=== PATIENT | female | born 1960 | race Caucasian/White ===

== ENCOUNTER → 2018-06-07 11:37 | Outpatient (CLI) | payer OTHER, SELFPAY ==
[2018-06-07 14:34] LABS: Anion Gap 8 (5-15); BUN 17 mg/dL (7-18); BUN/Creat Ratio 18.5 RATIO (10-20); Calcium,Total 9.2 mg/dL (8.5-10.1); Chloride 103 mmol/L (98-107); Creatinine, Serum 0.92 mg/dL (0.55-1.02); EST Glomerular Filtration Rate 67 mL/min (>60); Est Glom Filt Rate - Afr Amer 81 mL/min (>60); Glucose 90 mg/dL (74-106); Potassium 3.6 mmol/L (3.5-5.1); Sodium Level 142 mmol/L (136-145); Thyroid Stim Hormone (TSH) 1.05 uIU/mL (0.358-3.74)
== END ==
PROVIDERS: Family Provider Family Medicine; PCP Family Medicine; Visit Provider Family Medicine
DX: Z00.00 Encounter for general adult medical examination without abnormal findings (principal)
CPT/HCPCS: 36415; 80048; 84443

== ENCOUNTER → 2019-05-14 | Outpatient (CLI) | payer OTHER, SELFPAY ==
[2019-05-14 17:47] LABS: Anion Gap 8 (5-15); BUN 17 mg/dL (7-18); BUN/Creat Ratio 19.6 RATIO (10-20); Calcium,Total 9.3 mg/dL (8.5-10.1); Chloride 103 mmol/L (98-107); Creatinine, Serum 0.87 mg/dL (0.55-1.02); EST Glomerular Filtration Rate 71 mL/min (>60); Est Glom Filt Rate - Afr Amer 86 mL/min (>60); Glucose 99 mg/dL (74-106); Potassium 3.6 mmol/L (3.5-5.1); Sodium Level 142 mmol/L (136-145)
== END | disposition home or self-care (01) ==
LOC: MFPLAB 15:50
PROVIDERS: Family Provider Family Medicine; PCP Family Medicine; Referring Provider Family Medicine; Visit Provider Family Medicine
DX: I10 Essential (primary) hypertension (principal)
CPT/HCPCS: 36415; 80048

== ENCOUNTER → 2020-04-23 | Outpatient (CLI) | payer OTHER, SELFPAY ==
[2020-04-23 12:54] LABS: Anion Gap 4 (5-15); BUN 14 mg/dL (7-18); BUN/Creat Ratio 15.4 RATIO (10-20); Calcium,Total 9.8 mg/dL (8.5-10.1); Chloride 104 mmol/L (98-107); Creatinine, Serum 0.91 mg/dL (0.55-1.02); EST Glomerular Filtration Rate 67 mL/min (>60); Est Glom Filt Rate - Afr Amer 81 mL/min (>60); Glucose 78 mg/dL (74-106); Potassium 3.3 mmol/L (3.5-5.1); Sodium Level 138 mmol/L (136-145)
== END | disposition home or self-care (01) ==
LOC: MFPLAB 09:52
PROVIDERS: PCP Family Medicine; Referring Provider Family Medicine; Visit Provider Family Medicine
DX: I10 Essential (primary) hypertension (principal)
CPT/HCPCS: 36415; 80048

== ENCOUNTER → 2020-07-16 | Outpatient (CLI) | payer OTHER, SELFPAY | END | disposition home or self-care (01) | LOC: LABSPEC 13:54 | PROVIDERS: PCP Family Medicine; Visit Provider Family Medicine | DX: Z20.828 Contact with and (suspected) exposure to other viral communicable diseases (principal) | CPT/HCPCS: 87635; U0003 ==

== ENCOUNTER → 2020-07-21 14:17 | Outpatient (CLI) | payer OTHER, SELFPAY | PROVIDERS: PCP Family Medicine; Visit Provider Family Medicine | DX: R09.89 Other specified symptoms and signs involving the circulatory and respiratory systems (principal) | CPT/HCPCS: 87635; U0003 ==

== ENCOUNTER → 2021-06-08 07:40 | Outpatient (CLI) | payer OTHER, SELFPAY ==
--- NOTE | 2021-06-08 07:44 | BI_ITS ---
MAMMOGRAPHY - BILATERAL SCREENING REASON FOR EXAM: Female, 61 years old. Routine annual screening examination. PERTINENT HISTORY: Sister with breast cancer. Aunts with breast cancer. TECHNIQUE: Digital bilateral breast gene (3D mammographic acquisition) in the CC and MLO projections. 2-D mediolateral oblique (MLO) and craniocaudad (CC) views of both breasts were obtained. CAD: Full Field Digital Mammography with Computer Added Detection was performed. COMPARISON: None. Baseline examination. FINDINGS: Breast Composition: The breasts are heterogeneously dense, which may obscure small masses. There is a 0.4 cm x 0.5 cm well-defined nodule in the mid depth retroareolar region of the right breast. Correlation with ultrasound recommended. No other significant abnormalities are identified. BI/SCREENING MAMM (CAD), BILAT IMPRESSION: 4 mm x 5 mm well-defined nodule in the mid depth retroareolar region of the right breast. Correlation with ultrasound is recommended. ASSESSMENT CATEGORY: BIRADS Category 0: Incomplete. Need additional imaging evaluation. A letter regarding these results will be sent to the patient by the facility within 30 days. Approximately 10% of breast cancers are not detected by mammography. A normal mammogram should not delay biopsy of a clinically suspicious abnormality. [id number] Electronically Signed: Alejandro Burrell MD at 8:58 EST , Service support ,
== END ==
PROVIDERS: PCP Family Medicine; Referring Provider Family Medicine; Visit Provider Family Medicine
DX: Z12.31 Encounter for screening mammogram for malignant neoplasm of breast (principal)
CPT/HCPCS: 77067

== ENCOUNTER → 2021-06-10 07:45 | Outpatient (CLI) | payer OTHER, SELFPAY ==
--- NOTE | 2021-06-10 07:51 | US_ITS ---
STUDY: ULTRASOUND BREAST - RIGHT REASON FOR EXAM: Female, 61 years old. Abnormal screening mammogram. TECHNIQUE: Axial and longitudinal images of the RIGHT breast were performed with a high resolution ultrasound transducer. # OF IMAGES: 38 COMPARISON: Comparison is made with prior mammogram dated 06/08/2021. FINDINGS: RIGHT Breast: At the 9 o''clock position of the breast in the retroareolar region, there is a 3 mm x 3 mm x 2 mm cyst. At the 12 o''clock radiant of the breast in the retroareolar region, there is a 3 mm x 4 mm x 2 mm cyst. US/Breast Limited Unilateral IMPRESSION: 2 subcentimeter cysts are seen in the retroareolar region of the right breast as described. ASSESSMENT CATEGORY: BIRADS Category 2: Benign. A letter regarding these results will be sent to the patient by the facility within 30 days. Electronically Signed: Alejandro Burrell MD at 10:36 EST , Service support ,
== END ==
PROVIDERS: PCP Family Medicine; Referring Provider Family Medicine; Visit Provider Family Medicine
DX: R92.8 Other abnormal and inconclusive findings on diagnostic imaging of breast (principal)
CPT/HCPCS: 76642

== ENCOUNTER 2021-08-03 11:31 | Outpatient (CLI) | payer BC, SELFPAY ==
[2021-08-03 16:01] LABS: Anion Gap 6 (5-15); BUN 16 mg/dL (7-18); BUN/Creat Ratio 17.8 RATIO (10-20); Calcium,Total 9.8 mg/dL (8.5-10.1); Chloride 104 mmol/L (98-107); EST Glomerular Filtration Rate 68 mL/min (>60); Est Glom Filt Rate - Afr Amer 82 mL/min (>60); Glucose 92 mg/dL (74-106); Potassium 3.7 mmol/L (3.5-5.1); Sodium Level 141 mmol/L (136-145)
== END 2021-08-03 23:59 | disposition short-term general hospital (02) ==
LOC: MFPLAB 11:34
PROVIDERS: PCP Family Medicine; Visit Provider Family Medicine
DX: I10 Essential (primary) hypertension (principal)
CPT/HCPCS: 36415; 80048; 82043; 82570

== ENCOUNTER 2021-09-14 08:45 | Outpatient (CLI) | payer BC, SELFPAY ==
[2021-09-14 12:26] LABS: Cholesterol 173 mg/dL (200); High Density Lipoprotein 59 mg/dL; Thyroid Stim Hormone (TSH) 2.13 uIU/mL (0.358-3.74); Triglycerides 124 mg/dL; Very Low Density Lipoprotein 25 mg/dL (5-40)
== END 2021-09-14 23:59 | disposition home or self-care (01) ==
LOC: MFPLAB 08:47
PROVIDERS: PCP Family Medicine; Visit Provider Family Medicine
DX: Z00.00 Encounter for general adult medical examination without abnormal findings (principal); R63.4 Abnormal weight loss
CPT/HCPCS: 36415; 80061; 84443

== ENCOUNTER → 2023-08-15 | Outpatient (CLI) | payer BC, SELFPAY ==
--- OUTSIDE RECORDS SUMMARY | 2023-08-15 11:36 | XMS RPT_ITS | CCD ---
Author Name Unknown Address [address] [place] [address] Organization [facility] Results Test Name Value Interpretation Reference Range Facil ity Summary Purpose Family History No Family History Records Found Advance Directives No Advanced Directives Records Found Additional Source Comments INFORMATION SOURCE (unrecogn ized section and content) FOR RECORDS PERTAINING TO PATIENTS WHO ARE OR HAVE BEEN ENROLLED IN A CHEMICAL DEPENDENCY/SUBSTANCEABUSE PROGRAM, SOME INFORMATION MAY BE OMITTED. This clinical summary was aggregated from multiple sources. Caution should be exercised in using it in the provision of clinical care. This summary normalizes information from multiple sources, and as a consequence, information in this document may materially change the coding, format and clinical context of patient data. In addition, data may be omitted in some cases. CLINICAL DECISIONS SHOULD BE BASED ON THE PRIMARY CLINICAL RECORDS. [employer] provides no warranty or guarantee of the accuracy or completeness of information in this document.
[2023-08-15 12:33] LABS: Microalbumin,Random Urine 5.5 mg/L (NO RANGE EST.); Microalbumin:Creatinine Ratio 6.4 mg/g CRE (<30 mg/g CRE)
[2023-08-15 12:57] LABS: Anion Gap 5 (5-15); BUN 14 mg/dL (7-18); BUN/Creat Ratio 14.6 RATIO (10-20); Calcium,Total 9.6 mg/dL (8.5-10.1); Chloride 106 mmol/L (98-107); Cholesterol 186 mg/dL (200); Creatinine, Serum 0.96 mg/dL (0.55-1.02); EST Glomerular Filtration Rate 63 mL/min (>60); Est Glom Filt Rate - Afr Amer 76 mL/min (>60); Glucose 116 mg/dL (74-106); High Density Lipoprotein 57 mg/dL; Sodium Level 140 mmol/L (136-145); Triglycerides 129 mg/dL; Very Low Density Lipoprotein 26 mg/dL (5-40)
== END | disposition home or self-care (01) ==
LOC: MFPLAB 10:12
PROVIDERS: PCP Family Medicine; Visit Provider Family Medicine
DX: I10 Essential (primary) hypertension (principal)
CPT/HCPCS: 36415; 80048; 80061; 82043; 82570

== ENCOUNTER → 2023-08-25 | Outpatient (CLI) | payer BC, SELFPAY ==
--- NOTE | 2023-08-25 07:50 | BI_ITS ---
MAMMOGRAPHY - BILATERAL SCREENING REASON FOR EXAM: Female, 63 years old. Routine annual screening examination. PERTINENT HISTORY: Sister with breast cancer. Aunts with breast cancer. TECHNIQUE: Digital bilateral breast ramírez (3D mammographic acquisition) in the CC and MLO projections. 2-D mediolateral oblique (MLO) and craniocaudad (CC) views of both breasts were obtained. CAD: Full Field Digital Mammography with Computer Added Detection was performed. COMPARISON: Comparison is made with prior study dated June 08, 2021. FINDINGS: Breast Composition: The breasts are heterogeneously dense, which may obscure small masses. There are no dominant masses or suspicious calcifications. There is a 6 mm x 5 mm well-defined nodule in the mid depth retroareolar region of the right breast. This was a cyst on prior ultrasound. No other significant abnormalities are identified. There has been no significant change since the prior study. BI/SCRN MAMM (CAD)W/RAMÍREZ BILAT IMPRESSION: Stable bilateral screening mammogram. Yearly follow-up mammogram recommended. (A) ASSESSMENT CATEGORY: BIRADS Category 2: Benign. A letter regarding these results will be sent to the patient by the facility within 30 days. Approximately 10% of breast cancers are not detected by mammography. A normal mammogram should not delay biopsy of a clinically suspicious abnormality. [id number] Electronically Signed: Alejandro Burrell MD at 10:43 EST ,
--- OUTSIDE RECORDS SUMMARY | 2023-08-25 07:52 | XMS RPT_ITS | CCD ---
Author Name Unknown Address [address] [place] [address] Organization [facility] Results Test Name Value Interpretation [...] BE BASED ON THE PRIMARY CLINICAL RECORDS. [employer] provides no warranty or guarantee of the accuracy or completeness of information in this document.
== END | disposition home or self-care (01) ==
LOC: OPBI 07:50
PROVIDERS: PCP Family Medicine; Referring Provider Family Medicine; Visit Provider Family Medicine
DX: Z12.31 Encounter for screening mammogram for malignant neoplasm of breast (principal); Z80.3 Family history of malignant neoplasm of breast
CPT/HCPCS: 77063; 77067

== ENCOUNTER → 2024-07-30 | Outpatient (CLI) | payer BC, SELFPAY ==
[2024-07-30 12:42] LABS: ALB/GLOB Ratio 1.1 RATIO (0.9-2.4); AST(SGOT) 26 U/L (15-37); Alanine Aminotransfer ALT/SGPT 31 U/L (13-56); Albumin, Serum 3.9 g/dL (3.2-5.0); Alkaline Phosphatase 111 U/L (45-117); Anion Gap 4 (5-15); BUN 13 mg/dL (7-18); Calcium,Total 10.1 mg/dL (8.5-10.1); Chloride 104 mmol/L (98-107); Cholesterol 206 mg/dL (200); EST Glomerular Filtration Rate 59 mL/min (>60); Est Glom Filt Rate - Afr Amer 72 mL/min (>60); Globulin 3.5 g/dL (2.2-4.2); Glucose 94 mg/dL (74-106); High Density Lipoprotein 58 mg/dL; Potassium 3.5 mmol/L (3.5-5.1); Protein, Total 7.4 g/dL (6.4-8.2); Sodium Level 139 mmol/L (136-145); Triglycerides 156 mg/dL; Very Low Density Lipoprotein 31 mg/dL (5-40)
[2024-07-30 13:18] LABS: Protein, Urine (Random) < 6.0 mg/dL (<11.9)
== END | disposition home or self-care (01) ==
LOC: MTLAB 10:26
PROVIDERS: PCP Family Medicine; Referring Provider Family Medicine; Visit Provider Family Medicine
DX: I10 Essential (primary) hypertension (principal); E66.01 Morbid (severe) obesity due to excess calories
CPT/HCPCS: 36415; 80053; 80061; 82570; 84156; 84443

== ENCOUNTER 2024-08-17 10:54 | Emergency (ER) | payer BC, SELFPAY ==
[2024-08-17] VITALS (7 sets, daily range): BP systolic 123–166; BP diastolic 78–107; PULSE 60–72; RESP 16–18; TEMP 36.6; O2SAT 99–100
--- NOTE | 2024-08-17 11:15 | RAD_ITS ---
STUDY: X-RAY CHEST REASON FOR EXAM: Female, 64 years old. Chest pain TECHNIQUE: Single AP portable view of the chest. COMPARISON: None. FINDINGS: EKG electrodes are seen. The lungs are clear and expanded. There is no demonstrated pleural abnormality. Normal size heart. Normal mediastinum and vicki. Normal visualized pulmonary arteries. Normal visualized aortic arch and descending thoracic aorta. There are diffuse degenerative changes of the visualized thoracic spine. Normal visualized ribs, clavicles, and shoulders. There is no demonstrated abnormality of the visualized soft tissue structures of the upper abdomen. RAD/Chest 1 View (Portable) IMPRESSION: No acute abnormality is seen. Electronically Signed: Alejandro Burrell MD at 11:49 EST ,
--- NOTE | 2024-08-17 11:15 | EKG12_ITS ---
Test Reason : CP Blood Pressure : */* mmHG Vent. Rate : 64 BPM Atrial Rate : 64 BPM P-R Int : 218 ms QRS Dur : 92 ms QT Int : 416 ms P-R-T Axes : 59 16 52 degrees QTcB Int : 429 ms Sinus rhythm with 1st degree A-V block Otherwise normal ECG Confirmed by WALTER PHILLIPS, EMILIANO ([id number]), writer editor JIMI MIRZA ([id number]) on 08/21/2024 7:19:03 AM Referred By: Confirmed By: EMILIANO WATSON MD
[2024-08-17 11:27] LABS: Absolute Lymphocyte Count 1.66 X10^3/uL (0.83-4.51); Absolute Neutrophil Count 2.7 X10^3/uL (2.0-7.7); Basophil# 0.04 X10^3/uL; Basophil% 0.8 % (0-1); Eosinophil# 0.16 X10^3/uL; Eosinophils% 3.1 % (0-5); Hemoglobin 14.6 g/dL (12.0-15.0); Lymphocyte # 1.66 X10^3/ul (0.83-4.51); Lymphocyte % 32.5 % (19-41); Mean Corpuscular Hgb 30.5 pg (27.0-32.0); Mean Corpuscular Volume 89.8 fL (81-99); Mean Platelet Vol. 10.5 fl (6.2-12.0); Monocyte# 0.54 X10^3/uL; Monocyte% 10.6 % (0-10); NRBC Flagged by Analyzer 0 % (0-5); Neutrophil # 2.69 X10^3/uL (2.7-7.7); Neutrophil % 52.8 % (47-70); Platelet Count 216 K/mm3 (150-450); RBC Distribution Width CV 12.2 % (11.6-14.6); RBC Distribution Width SD 40.6 fl (35.1-43.9); Red Blood Count 4.79 M/mm3 (4.2-5.4); White Blood Count 5.1 K/mm3 (4.4-11.0)
--- NOTE | 2024-08-17 12:08 | ED.VIS.CHEST ---
HPI History of Present Illness Chief Complaint: Chest Pain Informant: patient Narrative Narrative: Patient is a 64-year-old female with history of hypertension and some sort of irregular heartbeat presenting for worsening chest pressure and shortness of breath. Patient states she had a routine screening colonoscopy in April and at that time she was noted to have some type of arrhythmia. She is slow to follow-up with her primary care doctor. She had an outpatient EKG which also showed an abnormality but she is not sure what it was. She then had a Holter monitor from July 30 to the . She notes since that time she has had significant progressive worsening of this chest heaviness and pressure. She states sometimes she will get short of breath with exertion but other times she will not. She was for the past few nights she has been more short of breath at night and has been having to wake up. She symptoms wakes up with a dry cough. She intermittently gets lightheaded and feels like she going to pass out but is not actually passed out. Patient she will get a sharp pain down her left arm. It seems that these causation symptoms do occur together. Last night she notes she woke up nauseous. She also gets a pressure sensation in her upper abdomen. She denies any recent diet changes. She denies any swelling of her legs. She notes that her results came in for Holter monitor but she does not know what the results were. She previously did have some heaviness and dizziness but thought it was from a sinus infection back in April. She states the intensity of the symptoms is worsening and also lasting longer. She feels that she has had decreased energy. She is concerned because her potassium is always a little bit low (3.5) even though she is on a potassium supplement. No other complaints or concerns noted at this time [facility] Medical History COVID-19 Home Medications ?Medication ?Instructions ?Recorded ?Last Taken ?Type cholecalciferol (vitamin D3) 50 50 mcg PO DAILY 11/28/20 08/16/24 History mcg (2,000 unit) capsule fluticasone propionate 50 1 spray intranasal DAILY 11/28/20 08/16/24 History mcg/actuation nasal spray,suspension (Flonase Allergy Relief) hydrochlorothiazide 25 mg tablet 25 mg PO DAILY 11/28/20 08/16/24 History loratadine 10 mg disintegrating 10 mg PO DAILY 11/28/20 08/16/24 History tablet (Alavert) nebivolol 5 mg tablet (Bystolic) 5 mg PO DAILY 11/28/20 08/16/24 History potassium chloride 10 mEq 10 meq PO DAILY 08/17/24 08/16/24 History tablet,extended release Allergy/AdvReac Type Severity Reaction Status Date / Time cefaclor (From Ceclor) Allergy Unknown Other Verified 08/17/24 11:00 levofloxacin (From Levaquin) Allergy Unknown PT UNSURE Verified 08/17/24 11:00 OF REACTION Penicillins Allergy Unknown unknown Verified 08/17/24 10:59 Sulfa (Sulfonamide Allergy Unknown PT UNSURE Verified 08/17/24 11:00 Antibiotics) (sulfa drugs) OF REACTION Tetracyclines Allergy Unknown PT UNSURE Verified 08/17/24 11:00 OF REACTION Social History Smoking Status: Never smoker ROS ROS ED Constitutional Constitutional ED: Denies chills or fever(s) ENT ENT ED: Denies sore throat Cardiovascular Cardiovascular: Reports as per HPI, chest pain and palpitations Respiratory/Chest Respiratory/Chest: Reports cough, dyspnea and dyspnea on exertion; Denies sputum Gastrointestinal Gastrointestinal: Denies abdominal pain, nausea or vomiting Musculoskeletal Musculoskeletal: Denies arthralgias or myalgias Neurologic Neurologic: Denies headache(s), paresthesias or weakness Psychiatric Psychiatric: Denies anxiety Hematologic/Lymphatic Hematologic/Lymphatic: Denies easy bleeding or easy bruising EXAM Physical Exam Const Vital Signs: 08/17/24 10:55 08/17/24 11:21 08/17/24 11:55 Temperature 97.8 F Temperature Source Temporal Pulse Rate 72 64 Respiratory Rate 16 Blood Pressure 165/81 H 166/107 H Blood Pressure Mean 109 126 Pulse Ox 100 99 Oxygen Delivery Method Room Air Room Air Room Air 08/17/24 13:00 08/17/24 14:00 08/17/24 15:00 Temperature Temperature Source Pulse Rate 64 60 61 Respiratory Rate 16 18 Blood Pressure 153/102 H 148/80 H 140/78 H Blood Pressure Mean 119 102 98 Pulse Ox 99 99 99 Oxygen Delivery Method Room Air Room Air 08/17/24 16:00 Temperature Temperature Source Pulse Rate 62 Respiratory Rate 18 Blood Pressure 123/94 H Blood Pressure Mean 103 Pulse Ox Oxygen Delivery Method Positive well nourished and well developed General Appearance ED: well developed and NAD HEENT Reports moist mucous membranes Eyes PERRL Neck supple and no JVD Chest Wall inspection of chest normal Resp normal respiratory effort and clear to auscultation bilaterally Auscultation: Negative for rales, rhonchi, wheezes or diminished lung sounds Cardio regular rate, regular rhythm and no murmurs GI normal to inspection, nondistended, normoactive bowel sounds and soft to palpation Extremity normal to inspection Extremity Narrative: 2+ DP pulses, 2+ radial pulses General Extremety ED: Negative for edema General Extremity: Negative for edema Neuro oriented x3 Sensorium / Orientation: awake and alert Psych mental status grossly normal Mood & Affect: anxious Skin no rashes or lesions noted Heart Score History: Moderately Suspicious ECG: Normal Age: >45 - <65 years Risk Factors: 1 or 2 Risk Factors Troponin: </= Normal Limit Score: 3 MDM MDM MDM Narrative Medical decision making narrative: Patient is evaluated for this progression of chest heaviness and tightness. Is noted to have a couple PVCs on telemetry I am in the room. Obtain workup as differential includes arrhythmia, ACS, pulmonary emboli, new onset heart failure, electrolyte abnormalities or possibly referred GI symptoms. Will contact patient's PCP for Holter monitor results as well. Holter monitor reviewed which showed 5% burden of PVCs and intermittent runs of atrial tachycardia. Otherwise largely normal. I spoke with her PCP, Dr. Byers, who reviewed it as well. She is agreeable with outpatient follow-up, referral to cardiology and recommends patient will be outpatient echocardiogram. She will work on arranging this. Vital signs normalized in the emergency room as far as her blood pressure. Her vital signs otherwise are normal. Patient overall is quite well-appearing. Her CBC, BMP, D-dimer, delta high sensitive troponin and BNP are all normal. Patient may discharge home with outpatient follow-up. Discussed with patient and results here as well as Holter monitor results. Given return precautions including syncope, severe chest pain, significant difficulty breathing, diaphoresis or if she has any other concerns. Lab Data Attestation: I reviewed the patient's lab results. Labs: Laboratory Results - last 24 hr 08/17/24 08/17/24 08/17/24 11:18 13:16 14:50 WBC 5.1 RBC 4.79 Hgb 14.6 Hct 43.0 MCV 89.8 MCH 30.5 MCHC 34.0 RDW Std Deviation 40.6 RDW Coeff of Ezequiel 12.2 Plt Count 216 MPV 10.5 Immature Gran % (Auto) 0.200 Neut % (Auto) 52.8 Lymph % (Auto) 32.5 [place] % (Auto) 10.6 H Eos % (Auto) 3.1 Baso % (Auto) 0.8 Absolute Neuts (auto) 2.7 Absolute Lymphs (auto) 1.66 Nucleated RBC % 0 D-Dimer Quant (PE/DVT) < 0.27 L Sodium 137 Potassium 3.8 Chloride 107 Carbon Dioxide 23.0 Anion Gap 8 BUN 18 Creatinine 1.16 H Est GFR (MDRD) Af Amer 61 Est GFR (MDRD) Non-Af 50 L BUN/Creatinine Ratio 15.5 Glucose 91 Calcium 9.8 Troponin I High Sens 10 13 B-Natriuretic Peptide 36.0 Radiography Chest X-Ray - ED: 1 View and Read by Radiologist Diagnostic Testing: Clinical Impression(s) from Imaging Studies Chest X-Ray 08/17/24 11:15 IMPRESSION: No acute abnormality is seen. Electronically Signed: Alejandro Burrell MD at 11:49 EST , Rhythm Strip Rhythm Strip: Sinus Rhythm Rate: 64 Ectopy: PVC(s) EKG Initial EKG: Attestation: I personally reviewed and interpreted this EKG as follows: Interpretation: Sinus Rhythm Comments: normal sinus rhythm Rate of 64 bpm Normal axis Prolonged NH interval with length of [address] segments Prior EKG tracings: available for review Prior: Changed (New first-degree AV block. PVCs no longer present compared to prior EKG on 07/02/2023) Discharge Plan Triage Chief Complaint: Chest Pain ED Provider: Edna Lora Dx/Rx/DC Orders Clinical Impression: Chest pressure Instructions: ED Chest Pain, Uncertain Cause Prescriptions: No Action Bystolic 5 mg tablet 5 mg PO DAILY hydrochlorothiazide 25 mg tablet 25 mg PO DAILY fluticasone propionate [Flonase Allergy Relief] 50 mcg/actuation spray,suspension 1 spray intranasal DAILY Rx Instructions: administer into each nostril loratadine [Alavert] 10 mg tablet,disintegrating 10 mg PO DAILY cholecalciferol (vitamin D3) 50 mcg (2,000 unit) capsule 50 mcg PO DAILY potassium chloride 10 mEq tablet extended release 10 meq PO DAILY Primary Care Provider: Jewels Byers Referrals: Jewels Byers MD [Primary Care Provider] - Shukri Quigley MD [Med Staff - Active Staff] - As soon as possible Activity Restrictions/Additional Instructions: Your work up today was reassuring. The Cause is not clear but at this time myself and Dr. Byers feel that you are a good candidate for outpatient workup. Please call cardiology for follow-up. Please call your primary care doctor for also close follow-up. If you have a progression or worsening symptoms please return to the emergency room. Print Language: Bulgarian Disposition Disposition: Home, Self Care
[2024-08-17 13:48] LABS: Anion Gap 8 (5-15); BUN 18 mg/dL (7-18); BUN/Creat Ratio 15.5 RATIO (10-20); Calcium,Total 9.8 mg/dL (8.5-10.1); Chloride 107 mmol/L (98-107); Creatinine, Serum 1.16 mg/dL (0.55-1.02); EST Glomerular Filtration Rate 50 mL/min (>60); Est Glom Filt Rate - Afr Amer 61 mL/min (>60); Glucose 91 mg/dL (74-106); Potassium 3.8 mmol/L (3.5-5.1); Sodium Level 137 mmol/L (136-145); Troponin-I HS (w/2H Reflex) 10 pg/mL (3.0-54.0)
[2024-08-17 13:49] LABS: Reflex Troponin-HS? (from REC) Y
[2024-08-17 13:49] LABS: D-Dimer Quantitative (DVT/PE) < 0.27 FEU/ug/m (0.27-0.49)
[2024-08-17 15:17] LABS: Troponin-I HS 13 pg/mL (3.0-54.0)
== END 2024-08-17 16:38 | disposition home or self-care (01) ==
PROVIDERS: Emergency Provider Emergency Medicine; PCP Family Medicine; Visit Provider Emergency Medicine
DX: R07.89 Other chest pain (principal); Z86.16 Personal history of COVID-19
CPT/HCPCS: 36415; 71045; 80048; 83880; 84484; 85025; 85379; 93005; 99284; A4216

== ENCOUNTER → 2024-09-05 | Outpatient (CLI) | payer BC, SELFPAY ==
--- NOTE | 2024-09-05 06:25 | ECHOD_ITS ---
Reason For Study Reason For Study: ARRHYTHMIA Procedure This was a 2D Doppler, Color Flow transthoracic echocardiogram. Exam performed in department. Left Ventricle Normal LV size. Mild concentric left ventricular hypertrophy. Left ventricular systolic function is normal. The left ventricular ejection fraction is 65 %. Stage 1 diastolic dysfunction. No regional wall motion abnormalities noted. Right Ventricle Normal RV size. Normal systolic function. Atria Normal left atrium. Normal right atrium. Mitral Valve Normal mitral valve. Tricuspid Valve Normal tricuspid valve. Aortic Valve Trisinus/trileaflet aortic valve. Pulmonic Valve Normal pulmonic valve. Great Vessels Normal aortic root. The pulmonary artery is normal size. Inferior vena cava collapse with respiration. Pericardium/Pleural No pericardial effusion. MMode/2D Measurements & Calculations LVIDd: 4.9 cm IVSd: 1.2 cm LVOT diam: 2.0 cm LVIDs: 2.8 cm LVPWd: 1.2 cm LVOT area: 3.3 cm2 RVDd: 3.5 cm FS: 43.2 % asc Aorta Diam: 3.5 cm LAV(MOD-bp): 45.6 ml LVAd ap4: 26.3 cm2 LAV(MOD-bp) Indexed: 22.0 ml/m2 LVLd ap4: 7.8 cm LAV(MOD-sp2): 48.5 ml EDV(MOD-sp4): 72.9 ml LAV(MOD-sp4): 38.9 ml EDV(sp4-el): 75.5 ml LVAs ap4: 13.6 cm2 LVLs ap4: 6.6 cm ESV(MOD-sp4): 23.7 ml ESV(sp4-el): 23.6 ml EF(MOD-sp4): 67.4 % EF(sp4-el): 68.8 % LVAd ap2: 26.8 cm2 SV(MOD-sp4): 49.2 ml SV(MOD-sp2): 45.6 ml LVLd ap2: 7.9 cm SI(MOD-sp4): 23.7 ml/m2 SI(MOD-sp2): 22.0 ml/m2 EDV(MOD-sp2): 74.9 ml EDV(sp2-el): 77.2 ml LVAs ap2: 15.4 cm2 LVLs ap2: 6.7 cm ESV(MOD-sp2): 29.3 ml ESV(sp2-el): 29.8 ml EF(MOD-sp2): 60.9 % SV(sp4-el): 51.9 ml Ao sinus diam: 3.[address] Junction: 2.8 cm LA dimension(2D): 4.4 cm LA A4 area: 15.7 cm2 RA A4 area: 11.8 cm2 TAPSE: 1.8 cm Time Measurements MV dec time: 0.25 sec Doppler Measurements & Calculations MV E max arpan: 79.3 cm/sec Lat Peak E' Arpan: 8.9 cm/sec Med Peak E' Arpan: 6.0 cm/sec MV A max arpan: 92.8 cm/sec E/E' lat: 8.9 E/E' med: 13.3 MV E/A: 0.85 MV dec slope: 322.0 cm/sec2 Ao V2 max: 105.2 cm/sec LV V1 max: 77.1 cm/sec Ao max P.4 mmHg LV V1 max P.4 mmHg Ao V2 mean: 72.4 cm/sec LV V1 mean P.3 mmHg Ao mean P.4 mmHg LV V1 mean: 55.1 cm/sec Ao V2 VTI: 24.8 cm LV V1 VTI: 17.8 cm AV (velocity ratio): 0.72 RAUDEL(I,D): 2.3 cm2 RAUDEL(V,D): 2.4 cm2 SV(LVOT): 58.3 ml PA V2 max: 82.9 cm/sec ECHO/Echo Complete Interpretation Summary Normal LV size. Left ventricular systolic function is normal. The left ventricular ejection fraction is 65 %. Stage 1 diastolic dysfunction. Mild concentric left ventricular hypertrophy. Ordering Physician: Jewels Byers Referring Physician: Jewels Byers Performed By: Emmanuelle Negron RDCS
--- NOTE | 2024-09-05 17:23 | STRESSREP ---
Stress Test Report Exercise myocardial perfusion stress test. 64-year-old lady with a history of cardiac dysrhythmia Stress protocol: Resting EKG demonstrates sinus rhythm with premature ventricular complexes and a rate of 62 bpm resting blood pressure is 124/80 mmHg. The patient exercised according to the regular Lm protocol for a total duration of 6 minutes and 31 seconds attaining a maximum heart rate of 136 bpm which was 86% of maximum predicted heart rate; the maximum workload was 8.5 metabolic equivalents. At rest there were no ST or T wave changes noted to suggest ischemia and at peak exercise upsloping ST changes only were noted which did not meet the criteria for ischemia. There was mild chest pressure noted of questionable significance. The test was terminated due to the target heart rate being achieved/fatigue. The peak blood pressure was 164/72 mmHg. Rate-pressure product was 21,100. Occasional premature ventricular complexes were noted during exercise Myocardial perfusion protocol. 13.9 mCi of technetium 99m sestamibi was injected at rest. The patient exercised according to regular Lm protocol for total duration of 6-1/2-minute and at peak exercise 41.8 mCi of technetium 99m sestamibi was injected stress images were obtained stress and rest images were reconstructed in comparing the short axis vertical long and horizontal long axis. Gated images were also obtained. Perfusion SPECT analysis: Review of the stress images demonstrate normal uptake of tracer noted in all areas of the myocardium. The resting images similarly demonstrate normal uptake of tracer noted in all areas of the myocardium. No areas of reversibility are noted to suggest ischemia no previous infarct was noted. Gated SPECT analysis: The gated ejection fraction is 72%. Conclusion: Normal exercise myocardial perfusion stress test at a moderate workload Preserved ejection fraction.
== END | disposition home or self-care (01) ==
LOC: CVS 06:24
PROVIDERS: PCP Family Medicine; Referring Provider Family Medicine; Visit Provider Family Medicine
DX: I49.9 Cardiac arrhythmia, unspecified (principal)
CPT/HCPCS: 78452; 93017; 93306; A9500; A4216

== ENCOUNTER → 2025-03-08 | Outpatient (CLI) | payer BC, SELFPAY ==
[2025-03-08 17:40] LABS: Hematocrit 40.6 % (37-47); Hemoglobin 14.0 g/dL (12.0-15.0); Immature Granulocytes Count 0.020 X10^3/uL (0.0-0.0); Mean Corp Hgb Conc 34.5 g/dL (32-36); Mean Corpuscular Volume 89.8 fL (81-99); Mean Platelet Vol. 10.7 fl (6.2-12.0); NRBC Flagged by Analyzer 0 % (0-5); Platelet Count 251 K/mm3 (150-450); RBC Distribution Width CV 12.4 % (11.6-14.6); RBC Distribution Width SD 40.9 fl (35.1-43.9); Red Blood Count 4.52 M/mm3 (4.2-5.4); White Blood Count 5.3 K/mm3 (4.4-11.0)
[2025-03-08 17:59] LABS: Creatinine, Urine (random) 60.00 mg/dL (28.00-217.00); Microalbumin,Random Urine < 12.0 mg/L (<20 mg/L)
[2025-03-08 18:18] LABS: AST(SGOT) 25 U/L (<=31); Alanine Aminotransfer ALT/SGPT 17 U/L (<=34); Albumin, Serum 4.3 g/dL (3.4-4.8); Alkaline Phosphatase 102 U/L (35-104); Anion Gap 12 (5-15); BUN 16 mg/dL (4-19); BUN/Creat Ratio 18.2 RATIO (10-20); Calcium,Total 10.0 mg/dL (7.6-11.0); Carbon Dioxide 27.7 mmol/L (21.0-32.0); Chloride 102 mmol/L (98-108); Globulin 2.6 g/dL (2.2-4.2); Glucose 89 mg/dL (70-99); Magnesium 2.3 mg/dL (1.5-2.2); Potassium 3.6 mmol/L (3.3-5.1); Vitamin D,25 Hydroxy 78.5 ng/mL (30-100)
== END | disposition home or self-care (01) ==
LOC: MFPLAB 15:20
PROVIDERS: PCP Family Medicine; Visit Provider Family Medicine
DX: I10 Essential (primary) hypertension (principal); E66.811 Obesity, class 1; E55.9 Vitamin D deficiency, unspecified; Z68.30 Body mass index [BMI] 30.0-30.9, adult
CPT/HCPCS: 36415; 80053; 82043; 82306; 82570; 83735; 85025